=== PATIENT | male | born 1950 | race Caucasian/White ===

== ENCOUNTER 2022-12-16 08:37 | Emergency (ER) | payer MEDICARE, MEDICAID ==
[~2022-12-16] VITALS: Ht 165.1 cm; Wt 81.8 kg
[2022-12-16] MEDS ORDERED: IOHEXOL 350 MG/ML 100 ML VIAL ONE (10:16)
[2022-12-16] MEDS ORDERED: SODIUM CHLORIDE 0.9% 100 ML ONE (10:16)
[2022-12-16 10:57] LABS: ANION GAP 5 mmol/L (8-16); BASOPHILS % (AUTO) 0.2 % (0.0-2.0); CALCIUM, TOTAL 9.8 mg/dL (8.8-10.5); CARBON DIOXIDE 28 mmol/L (22-29); CHLORIDE 105 mmol/L (98-107); CREATININE 0.95 mg/dL (0.60-1.30); EOSINOPHILS % (AUTO) 0.2 % (1.0-6.0); GLOMERULAR FILTR. RATE CALC > 60 mL/min (>60); GLUCOSE,RANDOM 109 mg/dL (70-110); HEMATOCRIT 43.8 % (41-53); HEMOGLOBIN 14.8 g/dL (13.5-17.5); LYMPHOCYTES # (AUTO) 1.3 K/uL (1.0-4.8); LYMPHOCYTES % (AUTO) 7.8 % (22.0-44.0); MEAN CORPUSCULAR HEMOGLOBIN 32.9 pg (26.0-34.0); MEAN CORPUSCULAR HGB CONC 33.8 G/dL (31.0-37.0); MEAN CORPUSCULAR VOLUME 97 fL (80-100); MONOCYTES # (AUTO) 0.7 K/uL (0.1-1.0); MONOCYTES % (AUTO) 4.5 % (2.0-9.0); NEUTROPHILS # (AUTO) 14.5 K/uL (1.8-7.7); PLATELET COUNT (AUTO) 288 K/uL (150-450); POTASSIUM 3.4 mmol/L (3.5-5.1); RED CELL DISTRIBUTION WIDTH 13.1 % (11.5-14.5); SODIUM SERUM 138 mmol/L (136-145); UREA NITROGEN, BLOOD 19 mg/dL (7-18)
[2022-12-16 11:01] LABS: NEUTROPHILS % (AUTO) 87.3 % (40.0-70.0)
[2022-12-16 11:03] LABS: ALANINE AMINOTRANSFERASE 43 U/L (12-78); ALKALINE PHOSPHATASE 90 U/L (46-116); ASPARTATE AMINOTRANSFERASE 38 U/L (15-37); BILIRUBIN,TOTAL 0.5 mg/dL (0.1-1.0); TOTAL PROTEIN, SERUM 8.2 g/dL (6.4-8.2)
[2022-12-16 12:24] VITALS: BP 131/70
== END 2022-12-16 12:48 | disposition home or self-care (01) ==
LOC: EMS 08:43
DX: R10.9 Unspecified abdominal pain (principal); M25.552 Pain in left hip; M25.512 Pain in left shoulder; V99.XXXA Unspecified transport accident, initial encounter; Y93.89 Activity, other specified; Y92.89 Other specified places as the place of occurrence of the external cause; Y99.8 Other external cause status
CPT/HCPCS: 99285; 74177; 80053; 85025; 73030; 73503; 73552; Q9967; J7050

== ENCOUNTER 2023-07-18 14:35 | Emergency (ER) | payer MEDICARE, MEDICAID ==
[~2023-07-18] VITALS: Ht 162.6 cm; Wt 81.8 kg
[2023-07-18 14:46] VITALS: TEMP 98.5
[2023-07-18 16:05] VITALS: BP 127/71; PULSE 64; RESP 18
== END 2023-07-18 16:36 | disposition home or self-care (01) ==
LOC: EMS 14:42
DX: R05.9 Cough, unspecified (principal)
CPT/HCPCS: 99281; Z7502